=== PATIENT | male | born 1960 | race Caucasian/White ===

== ENCOUNTER 2022-06-23 11:47 | Emergency (ER) | payer MEDICAID ==
[~2022-06-23] VITALS: Ht 185.4 cm; Wt 79.4 kg
[2022-06-23 11:54] VITALS: BP_SYST 136
[2022-06-23] MEDS ORDERED: IBUPROFEN 800 MG TABLET PO ONE (12:00)
[2022-06-23] MEDS ORDERED: HYDROcodone/ACETAMIN 10-325 MG TAB PO ONE (12:00)
--- NOTE | 2022-06-23 12:00 | NUR ---
RECEIVED PT FROM MILENA SCHAEFER. PT BIBS FOR C/O R KNEE PAIN X 2 WEEKS. SKIN INTACT, TRACE EDEMA NOTED, NO REDNESS. PT IS AAOX4. RESP E/U. ON R/A. DISTAL PULSES NORMAL, SKIN WARM, DRY, INTACT. PT STATES HE IS UNABLE TO AMBULATE AT THIS TIME. SIDERAILS UP X2.
[2022-06-23 12:28] LABS: BASOPHILS # (AUTO) 0.1 K/uL (0.0-0.2); BASOPHILS % (AUTO) 0.7 % (0.0-2.0); EOSINOPHILS # (AUTO) 0.2 K/uL (0.0-0.4); EOSINOPHILS % (AUTO) 1.7 % (0.0-4.0); HEMATOCRIT 37.5 % (36-54); HEMOGLOBIN 13.1 g/dL (14.0-18.0); LYMPHOCYTES # (AUTO) 3.2 K/uL (1.0-5.5); LYMPHOCYTES % (AUTO) 32.6 % (20.5-51.5); MEAN CORPUSCULAR HEMOGLOBIN 30 pg (27-31); MEAN CORPUSCULAR HGB CONC 35 % (32-36); MEAN CORPUSCULAR VOLUME 85 fL (79.0-98.0); MONOCYTES # (AUTO) 0.6 K/uL (0.0-1.0); MONOCYTES % (AUTO) 6.2 % (1.7-9.3); NEUTROPHILS # (AUTO) 5.7 K/uL (1.8-7.7); NEUTROPHILS % (AUTO) 58.8 % (40.0-70.0); PLATELET COUNT (AUTO) 440 K/uL (130-430); RED BLOOD CELL COUNT(AUTO) 4.44 MIL/uL (4.2-6.2); RED CELL DISTRIBUTION WIDTH 15.5 % (9.0-15.0); WHITE BLOOD COUNT (AUTO) 9.7 K/uL (4.8-10.8)
[2022-06-23 12:37] LABS: CALCIUM 12.4 mg/dL (8.4-11.0); CREATININE 1.72 mg/dL (0.55-1.30)
--- NOTE | 2022-06-23 12:41 | NUR ---
SCHEDULED MED GIVEN AND TOLERATED WELL. PT GIVEN COLD COMPRESS FOR RIGHT LEG.
[2022-06-23 12:48] LABS: ALBUMIN 3.5 g/dL (3.4-4.8); C-REACTIVE PROTEIN QUANT 1.2 mg/dL (0-0.5); TOTAL BILIRUBIN 0.4 mg/dL (0.0-1.0); URIC ACID 16.9 mg/dL (2.4-7.0)
[2022-06-23] MEDS ORDERED: ONDANSETRON 4 MG ODT TAB PO ONE (13:00)
[2022-06-23] MEDS ORDERED: IBUP-1971 PO (13:25)
[2022-06-23] MEDS ORDERED: HYDR-3917 PO (13:25)
--- NOTE | 2022-06-23 13:30 | NUR ---
DR. LEMOS AT BEDSIDE TO DISCUSS POC. PT STATES HE HAS NO WAY TO GET BACK TO HIS MOTEL UPON DISCHARGE. WILL NOTIFY PRASANTH PIZANO TO ARRANGE UBER.
[2022-06-23] MEDS ORDERED: ALLO100T PO (13:36)
--- NOTE | 2022-06-23 14:40 | NUR ---
PT DISCHARGED WITH UBER ORDERED, ASSISTED TO FRONT OF HOSPITAL AND ACCOMPANIED TO UBER. Patient given written and verbal discharge instructions and verbalizes understanding. ER MD discussed with patient the results and treatment provided. Patient in stable condition. ID arm band removed. IV catheter removed intact and dressing applied, no active bleeding. Rx of ALLOPURINAL, NORCO, MOTRIN given. Patient educated on pain management and to follow up with PMD. Pain Scale 0/10. Opportunity for questions provided and answered. Medication side effect fact sheet provided.
[2022-06-23 14:50] VITALS: BP_SYST 136
--- NOTE | 2022-06-23 14:50 | NUR ---
Crutches properly fitted for patient by STEFANIA RAMOS. Patient given crutch walking instructions and demonstration. Is able to demonstrate adequate crutch walking technique with crutches provided.
[2022-07-28] MEDS ORDERED: COLC0.6T67 PO (10:51)
[2022-07-28] MEDS ORDERED: PERC10 PO (10:51)
[2022-07-28] MEDS ORDERED: METO-542 PO (10:51)
== END 2022-06-23 14:40 | disposition home or self-care (01) ==
LOC: SED 11:47
DX: M10.061 Idiopathic gout, right knee (principal); M25.561 Pain in right knee; Z79.899 Other long term (current) drug therapy
CPT/HCPCS: 99284; 80053; 84550; 85025; 86140; 36415; 73560; Q0162

== ENCOUNTER 2024-01-03 13:53 | Inpatient (IN) | payer MEDICAID ==
[~2024-01-03] VITALS: Ht 182.9 cm; Wt 86.6 kg
[~2024-01-03 13:53] MED LIST: COLC0.6T67 PO; METO-306 PO; PERC10 PO
[2024-01-03 14:19] VITALS: BP_SYST 139; PULSE 111; RESP 18; TEMP 98.3; O2SAT 98
[2024-01-03 14:50] LABS: BASOPHILS % (AUTO) 0.4 % (0.0-2.0); EOSINOPHILS % (AUTO) 0.1 % (0.0-4.0); HEMATOCRIT 32.5 % (36-54); HEMOGLOBIN 10.9 g/dL (14.0-18.0); LYMPHOCYTES # (AUTO) 1.2 K/uL (1.0-5.5); LYMPHOCYTES % (AUTO) 12.9 % (20.5-51.5); MEAN CORPUSCULAR HEMOGLOBIN 25 pg (27-31); MEAN CORPUSCULAR HGB CONC 34 % (32-36); MEAN CORPUSCULAR VOLUME 75 fL (79.0-98.0); MONOCYTES # (AUTO) 1.7 K/uL (0.0-1.0); MONOCYTES % (AUTO) 18.3 % (1.7-9.3); NEUTROPHILS # (AUTO) 6.5 K/uL (1.8-7.7); NEUTROPHILS % (AUTO) 68.3 % (40.0-70.0); PLATELET COUNT (AUTO) 229 K/uL (130-430); RED BLOOD CELL COUNT(AUTO) 4.36 MIL/uL (4.2-6.2); RED CELL DISTRIBUTION WIDTH 20.6 % (9.0-15.0); WHITE BLOOD COUNT (AUTO) 9.5 K/uL (4.8-10.8)
[2024-01-03 15:14] LABS: ALBUMIN 3.2 g/dL (3.4-4.8); BILIRUBIN,DIRECT 0.3 mg/dL (0.0-0.3); CALCIUM 7.7 mg/dL (8.4-11.0); CREATININE 1.31 mg/dL (0.55-1.30); POTASSIUM 3.1 mmol/L (3.5-5.1); TOTAL BILIRUBIN 1.1 mg/dL (0.0-1.0); TOTAL PROTEIN, SERUM 8.6 g/dL (6.4-8.3)
[2024-01-03] MEDS ORDERED: MORPHINE 2 MG/ML INJ. SYRINGE ONE (16:40)
[2024-01-03] MEDS ORDERED: ONDANSETRON HCL 4 MG/2 ML VIAL ONE (16:41)
[2024-01-03] MEDS: MORPHINE 2 MG/ML INJ. SYRINGE IVP ONE (17:01)
[2024-01-03] MEDS: ONDANSETRON HCL 4 MG/2 ML VIAL IVP ONE ×2 (17:01→19:50)
[2024-01-03] MEDS: KETOROLAC TROMETHAMINE 30 MG VIAL IVP ONE (19:48)
[2024-01-03] MEDS: METHYLPREDNISOLONE SOD SUCC 40 MG/ML VIAL IVP ONE (19:48)
[2024-01-03] MEDS: MORPHINE 4 MG INJ. 4 MG/ML VIAL IVP ONE (19:49)
[2024-01-03] MEDS: POTASSIUM CHLORIDE 20 MEQ TABLET.ER PO ONE (19:50)
[2024-01-03] MEDS: NACL 0.9% 1,000 ML IV ONE (19:52)
[2024-01-03] MEDS ORDERED: HYDROcodone/ACETAMIN 10-325 MG TAB PO PRN (23:45)
[2024-01-03] MEDS ORDERED: LORazepam 2 MG/ML VIAL IVP PRN (23:45)
[2024-01-03] MEDS ORDERED: MORPHINE 2 MG/ML INJ. SYRINGE IVP PRN (23:45)
[2024-01-03] MEDS ORDERED: ONDANSETRON HCL 4 MG/2 ML VIAL IVP PRN (23:45)
[2024-01-03] MEDS ORDERED: NALOXONE HCL 0.4 MG/ML AMP (NARCAN) IVP PRN ×3 (23:45)
[2024-01-03] MEDS ORDERED: ACETAMINOPHEN 325 MG TABLET PO PRN (23:45)
[2024-01-04 00:50] LABS: BILIRUBIN,URINE 2+ (NEGATIVE); BLOOD, URINE NEGATIVE (NEGATIVE); CLARITY/URINE CLEAR (CLEAR); COLOR,URINE YELLOW (YELLOW); GLUCOSE,URINE NEGATIVE (NEGATIVE); KETONES,URINE 1+ (NEGATIVE); LEUKOCYTE ESTERASE ,URINE NEGATIVE (NEGATIVE); NITRITE, URINE NEGATIVE (NEGATIVE)
[2024-01-04 01:07] LABS: PROTEIN URINE NEGATIVE (NEGATIVE)
[2024-01-04 07:34] LABS: BASOPHILS % (AUTO) 0.1 % (0.0-2.0); HEMATOCRIT 32.2 % (36-54); HEMOGLOBIN 10.7 g/dL (14.0-18.0); LYMPHOCYTES # (AUTO) 0.5 K/uL (1.0-5.5); LYMPHOCYTES % (AUTO) 10.5 % (20.5-51.5); MEAN CORPUSCULAR HEMOGLOBIN 25 pg (27-31); MEAN CORPUSCULAR HGB CONC 33 % (32-36); MEAN CORPUSCULAR VOLUME 75 fL (79.0-98.0); MONOCYTES # (AUTO) 0.3 K/uL (0.0-1.0); MONOCYTES % (AUTO) 5.4 % (1.7-9.3); NEUTROPHILS # (AUTO) 4.1 K/uL (1.8-7.7); PLATELET COUNT (AUTO) 273 K/uL (130-430); RED BLOOD CELL COUNT(AUTO) 4.28 MIL/uL (4.2-6.2); RED CELL DISTRIBUTION WIDTH 20.9 % (9.0-15.0); WHITE BLOOD COUNT (AUTO) 4.9 K/uL (4.8-10.8)
[2024-01-04 08:11] LABS: ALBUMIN 2.8 g/dL (3.4-4.8); CALCIUM 7.3 mg/dL (8.4-11.0); CREATININE 1.29 mg/dL (0.55-1.30); POTASSIUM 4.1 mmol/L (3.5-5.1); TOTAL BILIRUBIN 0.8 mg/dL (0.0-1.0); TOTAL PROTEIN, SERUM 8.6 g/dL (6.4-8.3)
[2024-01-04 09:37] VITALS: BP_SYST 133; PULSE 90; RESP 18; TEMP 97; O2SAT 98
[2024-01-04 10:30] VITALS: BP_SYST 133; PULSE 90; RESP 18; TEMP 97; O2SAT 98
[2024-01-04] MEDS: COLCHICINE 0.6 MG TABLET PO SCH (10:37)
[2024-01-04] MEDS: HYDROcodone/ACETAMIN 5-325 MG TAB (NORCO/ VICODIN) PO PRN (10:38)
[2024-01-04] MEDS: METOPROLOL SUCCINATE 50 MG TAB.SR.24H (TOPROL XL) PO SCH (10:39)
[2024-01-04] MEDS: INDOMETHACIN 25 MG CAPSULE(INDOCIN) PO SCH (16:23)
[2024-01-04 16:43] VITALS: BP_SYST 158; PULSE 71; RESP 18; TEMP 97.1; O2SAT 98
[2024-01-04 20:00] VITALS: BP_SYST 172; PULSE 78; RESP 18; TEMP 98.2; O2SAT 100
[2024-01-05] VITALS (8 sets, daily range): BP systolic 139–177; PULSE 77–90; RESP 18; TEMP 96.5–98.7; O2SAT 97–99
[2024-01-05] MEDS: hydrALAZINE HCL 20 MG/ML VIAL IVP PRN (00:06)
[2024-01-05 04:58] LABS: BASOPHILS % (AUTO) 0.2 % (0.0-2.0); EOSINOPHILS % (AUTO) 0.2 % (0.0-4.0); HEMATOCRIT 30.5 % (36-54); HEMOGLOBIN 10.1 g/dL (14.0-18.0); LYMPHOCYTES # (AUTO) 1.8 K/uL (1.0-5.5); LYMPHOCYTES % (AUTO) 17.5 % (20.5-51.5); MEAN CORPUSCULAR HEMOGLOBIN 25 pg (27-31); MEAN CORPUSCULAR HGB CONC 33 % (32-36); MEAN CORPUSCULAR VOLUME 75 fL (79.0-98.0); MONOCYTES # (AUTO) 1.3 K/uL (0.0-1.0); MONOCYTES % (AUTO) 12.8 % (1.7-9.3); NEUTROPHILS # (AUTO) 7.1 K/uL (1.8-7.7); NEUTROPHILS % (AUTO) 69.3 % (40.0-70.0); PLATELET COUNT (AUTO) 365 K/uL (130-430); RED BLOOD CELL COUNT(AUTO) 4.07 MIL/uL (4.2-6.2); WHITE BLOOD COUNT (AUTO) 10.3 K/uL (4.8-10.8)
[2024-01-05 05:08] LABS: CALCIUM 7.6 mg/dL (8.4-11.0); CREATININE 1.42 mg/dL (0.55-1.30); POTASSIUM 3.3 mmol/L (3.5-5.1)
[2024-01-05] MEDS: POTASSIUM CHLORIDE 20 MEQ TABLET.ER PO ONE (10:53)
[2024-01-05] MEDS: D5/0.45 NS 1,000 ML IV SCH (11:01)
[2024-01-06 04:00] VITALS: BP_SYST 152; PULSE 83; RESP 17; TEMP 98; O2SAT 98
[2024-01-06 05:01] LABS: BASOPHILS # (AUTO) 0.1 K/uL (0.0-0.2); BASOPHILS % (AUTO) 0.8 % (0.0-2.0); EOSINOPHILS # (AUTO) 0.1 K/uL (0.0-0.4); HEMATOCRIT 28.7 % (36-54); HEMOGLOBIN 9.6 g/dL (14.0-18.0); LYMPHOCYTES # (AUTO) 1.6 K/uL (1.0-5.5); LYMPHOCYTES % (AUTO) 19.9 % (20.5-51.5); MEAN CORPUSCULAR HEMOGLOBIN 25 pg (27-31); MEAN CORPUSCULAR HGB CONC 33 % (32-36); MEAN CORPUSCULAR VOLUME 74 fL (79.0-98.0); MONOCYTES # (AUTO) 1.2 K/uL (0.0-1.0); MONOCYTES % (AUTO) 14.3 % (1.7-9.3); NEUTROPHILS # (AUTO) 5.3 K/uL (1.8-7.7); PLATELET COUNT (AUTO) 411 K/uL (130-430); RED BLOOD CELL COUNT(AUTO) 3.88 MIL/uL (4.2-6.2); RED CELL DISTRIBUTION WIDTH 19.7 % (9.0-15.0); WHITE BLOOD COUNT (AUTO) 8.2 K/uL (4.8-10.8)
[2024-01-06 05:39] LABS: ALBUMIN 2.3 g/dL (3.4-4.8); CALCIUM 7.4 mg/dL (8.4-11.0); CREATININE 1.1 mg/dL (0.55-1.30); POTASSIUM 4.1 mmol/L (3.5-5.1); TOTAL BILIRUBIN 0.4 mg/dL (0.0-1.0); TOTAL PROTEIN, SERUM 6.8 g/dL (6.4-8.3)
[2024-01-06] MEDS ORDERED: INDO-11 PO (10:04)
[2024-01-06] MEDS: MAGNESIUM SULFATE 50 ML IV ONE (10:30)
[2024-01-06 11:44] VITALS: BP_SYST 155; PULSE 82; RESP 18; TEMP 97.6; O2SAT 98
[2024-01-06 12:40] VITALS: BP_SYST 166; PULSE 77; RESP 18; O2SAT 99
[2024-01-06 13:42] VITALS: BP_SYST 149; PULSE 92; RESP 18; TEMP 98.1; O2SAT 98
== END 2024-01-06 14:20 | disposition home health service (06) | DRG 351 ==
LOC: SED 13:53 → SMU 21:16
PROVIDERS: ADMIT Preventive Medicine Preventive Medicine/Occupational Environmental Medicine; ATTEND Preventive Medicine Preventive Medicine/Occupational Environmental Medicine
DX: M13.862 Other specified arthritis, left knee (principal); N17.9 Acute kidney failure, unspecified; E44.0 Moderate protein-calorie malnutrition; E83.51 Hypocalcemia; M10.062 Idiopathic gout, left knee; M13.861 Other specified arthritis, right knee; K76.0 Fatty (change of) liver, not elsewhere classified; E83.52 Hypercalcemia; M10.9 Gout, unspecified; D64.9 Anemia, unspecified; E87.6 Hypokalemia; I10 Essential (primary) hypertension; N28.1 Cyst of kidney, acquired; Z68.25 Body mass index [BMI] 25.0-25.9, adult; Z79.899 Other long term (current) drug therapy
CPT/HCPCS: 36415; 73560; 76770; 80048; 80053; 80076; 81001; 81003; 83690; 83735; 84100; 84550; 85025; 97110-GP; 97112-GP; 97116-GP; 97530-GP; 99285; J0360; J1030; J1885; J2270; J2405; J3475